=== PATIENT | female | born 1990 | race Caucasian/White ===

== ENCOUNTER 2022-08-02 23:59 | Emergency (ER) | payer BC, SELFPAY ==
[2022-08-03 00:05] VITALS: BP 131/86; PULSE 100; TEMP 36.6; O2SAT 100; BMI 35.7
--- NOTE | 2022-08-03 00:18 | ED.NECK1 ---
HPI - Neck Pain/Injury General Chief Complaint: Neck Pain/Injury Stated Complaint: NECK PAIN Time Seen by Provider: 08/03/22 00:18 Source: patient Mode of arrival: walk-in Limitations: no limitations History of Present Illness HPI Narrative: This 31-year-old female presents for evaluation of lower neck pain and upper back pain. She points to the C6-C7, T1-T2 area as area of greatest pain. She states that her symptoms started last week. She states she woke up from sleeping and thought she had slept wrong. She has been taking ibuprofen. This morning she was sleeping and woke up and thinks that she jerked her neck and has increasing pain in her neck and a funny feeling in her upper arms. She denies any actual weakness numbness or tingling. She states that the pain in her arms is made worse when she raises her arms over her head. She denies any injury. She denies any fever. She has no skin rash. She denies any chest pain or shortness of breath. She states she initially had increasing pain with rotatory movement and flexion but now feels that extension of her neck causes her more discomfort. MD complaint: Reports neck pain and upper back pain Onset (ago): week(s) (1) Radiation: Reports right upper extremity and left upper extremity Severity: moderate Quality: Reports aching, spasming and throbbing Duration: Reports constant Relieving factors: Reports none Exacerbating factors: Reports movement of neck Associated symptoms: Reports other ( weird feeling in upper arms denies weakness, numbness or tingling) Treatments prior to arrival: Reports ibuprofen Related Data Allergies Allergy/AdvReac Type Severity Reaction Status Date / Time No Known Drug Allergies Allergy Verified 08/03/22 00:09 Review of Systems ROS Status of ROS 10 or more systems reviewed and unremarkable except as noted in history and below PFS PFS Social History Smoking status: Never smoker Exam Constitutional Vital Signs - 24 hr 08/03/22 00:05 Temperature 97.9 F Pulse Rate [Monitor] 100 H Blood Pressure [Right Arm] 131/86 H Pulse Oximetry 100 Oxygen Delivery Method Room Air Documenting provider has reviewed patient's vital signs: yes Common normals: no apparent distress, average body habitus, oriented x3, no limitations, healthy appearing, alert and well nourished General appearance: cooperative HENMT Common normals: normocephalic, head/scalp atraumatic, hearing grossly normal bilaterally and external ears normal Head and scalp: normal to inspection Face and sinus: normal facial exam External ear: external ears normal Eye Common normals: PERRL, EOMs intact bilaterally and conjunctivae normal Neck & C-Spine Common normals: no meningeal signs General: normal visual inspection, trachea midline and other (no midline vertebral bony tenderness or step off, moderate paravert M spasm) Cervical spine: cervical ROM abnormal (decreased ROM in flexion, extension and rotatory movements, no ginny nuchal), pain with cervical ROM and paracervical muscle spasm Respiratory Common normals: normal respiratory effort, no retractions, no use of accessory muscles and clear to auscultation bilaterally Effort & inspection: able to speak in complete sentences and symmetric chest movement Cardio Common normals: regular rate, regular rhythm, S1 normal heart sound and S2 normal heart sound GI Common normals: Normal to inspection, nondistended, normoactive bowel sounds present Back & Pelvis Common normals: no CVA tenderness, thoracic and lumbar spine normal to inspection, no thoracic nor lumbar tenderness (Upper thoracic tenderness and paravertebral m spasm) and thoraco-lumbar ROM normal Extremity Common normals: normal to inspection, full ROM, normal capillary refill, no joint enlargement and no clubbing, cyanosis or edema Neuro Common normals: oriented x3, CN's II-XII intact bilaterally, moves all extremities, no focal motor deficits and no sensory deficits noted Gait (neuro): normal gait Motor exam: strength 5/5 throughout Psych Common normals: mental status grossly normal, thought process normal, cooperative, affect normal and speech normal Course Course Hospital Course: Course/MDM: This 31-year-old female presents for evaluation of lower cervical and upper thoracic neck pain. The pain started last week. The patient thought she had slept wrong at night and was having muscle spasms in her neck. She does have a history of degenerative disc disease in her low back. 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 She states that her neck is spasming in her arms feel weird. She has no gross focal neurologic deficits. There is no weakness numbness or tingling. Nursing Executive strength is intact, capillary refill is normal, pulses are brisk and equal bilaterally. She had been taking ibuprofen without significant improvement in her pain. Emergency Department she was medicated with Toradol, Norflex, Zofran and a [place]. She declined any radiographic studies. She will be discharged home with Rx for norco and flexeril. I suggested moist heat, gentle stretching and return to ED for increasing neck or back pain, weakness, numbness, tingling or any other neurologic symptoms. She is in agreement with this plan. Reevaluation(s) Reevaluation #1: Starting to feel better after IM toradol and norflex and po zofran and norco, requests to be discharged home Vital Signs Vital signs: Vital Signs Temperature 97.9 F 08/03/22 00:05 Pulse Rate 100 H 08/03/22 00:05 Blood Pressure 131/86 H 08/03/22 00:05 Pulse Oximetry 100 08/03/22 00:05 Oxygen Delivery Method Room Air 08/03/22 00:05 Temperature 97.9 F 08/03/22 00:05 Pulse Rate 100 H 08/03/22 00:05 Blood Pressure 131/86 H 08/03/22 00:05 Pulse Oximetry 100 08/03/22 00:05 Oxygen Delivery Method Room Air 08/03/22 00:05 MDM - Neck Pain/Injury MDM Narrative Medical decision making narrative: This 31 of female presents for evaluation of Differential Diagnosis Differential diagnosis: Likely torticollis and strain of neck muscle Discharge Plan Discharge Chief Complaint: Neck Pain/Injury Clinical Impression: Torticollis, Strain of neck muscle Patient Disposition: Home, Self-Care Time of Disposition Decision: 01:32 Condition: Good Print Language: [place] Stand Alone Forms: Portal Instructions Referrals: Physician,Non-Staff, MD [Primary Care Provider] - 1 week
[2022-08-03] MEDS: HYDROCODONE/ACETAMINOPHEN 5-325 MG TABLET 1 TAB PO (01:01)
[2022-08-03] MEDS: ONDANSETRON 4 MG RAPDIS TABLET SL (01:01)
[2022-08-03] MEDS: KETOROLAC TROMETHAMINE 30 MG/ML VIAL IM (01:01)
[2022-08-03] MEDS: ORPHENADRINE 60 MG/ 2 ML VIAL IM (01:04)
== END 2022-08-03 01:48 | disposition home or self-care (01) ==
PROVIDERS: Emergency Provider Emergency Medicine; PCP Family Medicine
DX: M43.6 Torticollis (principal); S16.1XXA Strain of muscle, fascia and tendon at neck level, initial encounter; X50.9XXA Other and unspecified overexertion or strenuous movements or postures, initial encounter
CPT/HCPCS: 99284